=== PATIENT | female | born 1975 | race Hispanic/Latino ===

== ENCOUNTER 2017-05-15 15:45 | Observation (INO) | payer BC, OTHER ==
[~2017-05-15] VITALS: Ht 160 cm; Wt 128.9 kg
[2017-05-16] VITALS (22 sets, daily range): BP systolic 90–140; BP diastolic 60–85
[2017-05-16 08:55] LABS: BASOPHILS % (AUTO) 0.8 % (0.0-5.0); EOSINOPHILS % (AUTO) 4.4 % (0.0-8.0); HEMATOCRIT 36.7 % (36-48); LYMPHOCYTES % (AUTO) 17.3 % (21.0-51.0); MEAN CORPUSCULAR HEMOGLOBIN 28.7 pg (27.0-33.0); MEAN CORPUSCULAR HGB CONC 33.2 g/dL (32.0-36.0); MEAN CORPUSCULAR VOLUME 86.4 fL (79-99); MONOCYTES % (AUTO) 6.3 % (3.0-13.0); NEUTROPHILS % (AUTO) 71.2 % (40.0-77.0); PLATELET COUNT (AUTO) 294 K/uL (130-400); RED BLOOD CELL COUNT(AUTO) 4.25 MIL/uL (4.00-5.50); RED CELL DISTRIBUTION WIDTH 14.5 % (11.0-15.5); WHITE BLOOD COUNT (AUTO) 7.8 K/uL (4.8-10.8)
[2017-05-16 09:02] LABS: CREATININE 0.6 mg/dL (0.5-1.5); POTASSIUM 3.7 mmol/L (3.5-5.1)
[2017-05-16] MEDS: CEFAZOLIN SODIUM 1 GM VIAL IVP SCH ×3 (09:15→18:15)
[2017-05-16] MEDS ORDERED: LACTATED RINGERS 1000ML 1,000 ML IV ONE (09:30)
[2017-05-16] MEDS ORDERED: MIDAZOLAM HCL 1 MG/ML 2ML VIAL ONE (10:49)
[2017-05-16] MEDS ORDERED: LIDOCAINE PF 2% 5ML ABBOJECT ONE (11:01)
[2017-05-16] MEDS ORDERED: GLYCOPYRROLATE 0.2 MG/ML 5 ML VIAL ONE (11:01)
[2017-05-16] MEDS ORDERED: DEXAMETHASONE SOD PHOSPHATE 10MG/ML 1ML VIAL ONE (11:01)
[2017-05-16] MEDS ORDERED: PROPOFOL 10 MG/ML 20ML VIAL IV ONE (11:01)
[2017-05-16] MEDS ORDERED: FENTANYL CITRATE PF 50 MCG/1 ML 2ML VIAL ONE ×3 (11:02→13:44)
[2017-05-16] MEDS ORDERED: CEFAZOLIN SODIUM 1 GM VIAL ONE (11:29)
[2017-05-16] MEDS ORDERED: ONDANSETRON HCL MDV 20ML 2 MG/ML VIAL ONE ×2 (13:07)
[2017-05-16] MEDS ORDERED: NEOSTIGMINE METHYLSULFATE 1MG/ML IV ONE (13:07)
[2017-05-16] MEDS ORDERED: LIDOCAINE HCL-MPF 1% 2ML VIAL IVP PRN (13:15)
[2017-05-16] MEDS ORDERED: DIPHENHYDRAMINE HCL 25 MG CAPSULE PO PRN (13:15)
[2017-05-16] MEDS ORDERED: TEMAZEPAM 15 MG CAPSULE PO PRN (13:15)
[2017-05-16] MEDS ORDERED: FERROUS FUMARATE 324 MG TABLET PO PRN (13:15)
[2017-05-16] MEDS ORDERED: CALCIUM CARBONATE 500 MG TABLET PO PRN (13:15)
[2017-05-16] MEDS ORDERED: PROMETHAZINE HCL 25 MG/ML 1ML AMPULE IM PRN (13:15)
[2017-05-16] MEDS ORDERED: DiphenhydrAMINE HCL 50 MG/ML VIAL IVP PRN (13:15)
[2017-05-16] MEDS ORDERED: KETOROLAC TROMETHAMINE 15MG/ML IV PRN (13:15)
[2017-05-16] MEDS ORDERED: POTASSIUM CHLORIDE 10% ELIXIR 20 MEQ/15 ML UDCUP PO PRN (13:15)
[2017-05-16] MEDS ORDERED: POTASSIUM CHLORIDE 20MEQ/100ML 100 ML IV PRN (13:15)
[2017-05-16] MEDS ORDERED: POTASSIUM CHLORIDE 20 MEQ ERTAB PO PRN (13:15)
[2017-05-16] MEDS ORDERED: HYDROCODONE/ACETAMINOPHEN 5/325 MG TAB PO PRN (13:15)
[2017-05-16] MEDS ORDERED: MEPERIDINE-PF 25 MG/ML SYG ONE (14:30)
[2017-05-16] MEDS: SODIUM CHLORIDE 0.9% 1000ML 1,000 ML IV SCH (15:36)
[2017-05-16] MEDS: KETOROLAC TROMETHAMINE 30MG/ML IV PRN (15:50)
[2017-05-16] MEDS ORDERED: CEFAZOLIN 3GM /D5W 100ML 100 ML IV SCH (18:15)
[2017-05-16] MEDS: HYDROCODONE/ACETAMINOPHEN 5/325 MG TAB PO PRN (18:26)
[2017-05-16] MEDS: FAMOTIDINE 20MG TAB 20 MG TAB PO SCH (20:12)
[2017-05-16] MEDS: ENOXAPARIN SODIUM 40 MG/0.4 ML SYRINGE SQ SCH (21:00)
[2017-05-17] MEDS: CEFAZOLIN SODIUM 1 GM VIAL IVP SCH (01:31)
[2017-05-17] MEDS: SODIUM CHLORIDE 0.9% 1000ML 1,000 ML IV SCH ×2 (01:31→09:07)
[2017-05-17] MEDS: HYDROCODONE/ACETAMINOPHEN 5/325 MG TAB PO PRN ×3 (01:36→14:07)
[2017-05-17 05:13] VITALS: BP 125/65
[2017-05-17 05:41] LABS: HEMATOCRIT 34.3 % (36-48); MEAN CORPUSCULAR HEMOGLOBIN 29.7 pg (27.0-33.0); MEAN CORPUSCULAR HGB CONC 34.6 g/dL (32.0-36.0); MEAN CORPUSCULAR VOLUME 85.8 fL (79-99); NUCLEATED RED BLOOD CELLS 0.1 % (0.0-0.19); PLATELET COUNT (AUTO) 274 K/uL (130-400); RED CELL DISTRIBUTION WIDTH 14.5 % (11.0-15.5); WHITE BLOOD COUNT (AUTO) 9.2 K/uL (4.8-10.8)
[2017-05-17 05:48] LABS: CREATININE 0.6 mg/dL (0.5-1.5); POTASSIUM 3.7 mmol/L (3.5-5.1)
[2017-05-17 08:01] VITALS: BP 114/79
[2017-05-17] MEDS: FAMOTIDINE 20MG TAB 20 MG TAB PO SCH (08:58)
[2017-05-17] MEDS: ENOXAPARIN SODIUM 40 MG/0.4 ML SYRINGE SQ SCH (08:59)
[2017-05-17] MEDS ORDERED: POLYETHYLENE GLYCOL 3350 17 GM POWD.PACK PO SCH (09:00)
[2017-05-17 11:49] VITALS: BP 106/57
[2017-05-17] MEDS ORDERED: PSYLLIUM SEED 1 EACH PACKET PO SCH (12:00)
[2017-05-17] MEDS ORDERED: HYDR-2132 PO (13:05)
[2017-05-17] MEDS ORDERED: ASPI-1012 PO (13:05)
[2017-05-17 16:29] VITALS: BP 137/83
[2017-05-17] MEDS: KETOROLAC TROMETHAMINE 30MG/ML IV PRN (16:29)
[2017-05-18] MEDS ORDERED: BISACODYL 5 MG TABLET.DR PO PRN (13:15)
[2017-05-19] MEDS ORDERED: BISACODYL 10 MG SUPP.RECT RC PRN (13:15)
== END 2017-05-17 17:15 | disposition home or self-care (01) ==
LOC: EDSTATUS 15:45 → DAHIP 05-16 08:04 → 4AH 05-16 15:16
PROVIDERS: ADMIT Orthopaedic Surgery; ATTEND Orthopaedic Surgery
DX: S42.302A Unspecified fracture of shaft of humerus, left arm, initial encounter for closed fracture (principal); X58.XXXA Exposure to other specified factors, initial encounter; Y93.89 Activity, other specified; Y92.89 Other specified places as the place of occurrence of the external cause; Y99.8 Other external cause status
CPT/HCPCS: 24515; 36415 ×2; 76000; 80048 ×2; 84703; 85025; 85027; 96372; 96374; 96375; 96376; A4218 ×3; A4565; A4649; A4930 ×2; A6223; C1713 ×3; C1776; G0378 ×34; J0690 ×4; J1100; J1650; J1885 ×2; J2001; J2175; J2250; J2704; J2710; J3010 ×3; J3490; J7030; J7120

== ENCOUNTER 2017-07-06 09:59 | Observation (INO) | payer OTHER ==
[2017-07-05 16:05] VITALS: BP 140/71
[2017-07-05 16:12] LABS: BASOPHILS % (AUTO) 1.3 % (0.0-5.0); EOSINOPHILS % (AUTO) 3.3 % (0.0-8.0); HEMATOCRIT 39.4 % (36-48); LYMPHOCYTES % (AUTO) 21.9 % (21.0-51.0); MEAN CORPUSCULAR HEMOGLOBIN 27.8 pg (27.0-33.0); MEAN CORPUSCULAR HGB CONC 33.3 g/dL (32.0-36.0); MEAN CORPUSCULAR VOLUME 83.5 fL (79-99); MONOCYTES % (AUTO) 6.7 % (3.0-13.0); NEUTROPHILS % (AUTO) 66.8 % (40.0-77.0); PLATELET COUNT (AUTO) 364 K/uL (130-400); RED BLOOD CELL COUNT(AUTO) 4.71 MIL/uL (4.00-5.50); RED CELL DISTRIBUTION WIDTH 14.6 % (11.0-15.5); WHITE BLOOD COUNT (AUTO) 7.1 K/uL (4.8-10.8)
[2017-07-05 16:25] LABS: CREATININE 0.7 mg/dL (0.5-1.5); POTASSIUM 3.5 mmol/L (3.5-5.1)
[~2017-07-06] VITALS: Ht 160 cm; Wt 128.8 kg
[2017-07-06] VITALS (19 sets, daily range): BP systolic 99–142; BP diastolic 62–96
[2017-07-06] MEDS: CEFAZOLIN SODIUM 1 GM VIAL IVP SCH ×2 (05:00→16:00)
[2017-07-06] MEDS ORDERED: LACTATED RINGERS 1000ML 1,000 ML IV ONE (10:25)
[2017-07-06] MEDS ORDERED: PROPOFOL 10 MG/ML 20ML VIAL IV ONE (15:01)
[2017-07-06] MEDS ORDERED: MIDAZOLAM HCL 1 MG/ML 2ML VIAL ONE (15:01)
[2017-07-06] MEDS ORDERED: FENTANYL CITRATE PF 50 MCG/1 ML 2ML VIAL ONE ×3 (15:01→20:41)
[2017-07-06] MEDS ORDERED: ROPIVACAINE 0.5% 5MG/ML 30ML IJ ONE (15:43)
[2017-07-06] MEDS ORDERED: CEFAZOLIN SODIUM 1 GM VIAL ONE ×2 (16:23→19:42)
[2017-07-06] MEDS ORDERED: ONDANSETRON HCL MDV 20ML 2 MG/ML VIAL ONE (19:27)
[2017-07-06] MEDS ORDERED: GLYCOPYRROLATE 0.2 MG/ML 5 ML VIAL ONE (19:27)
[2017-07-06] MEDS ORDERED: NEOSTIGMINE 5MG/5ML SYR IV ONE (19:27)
[2017-07-06] MEDS ORDERED: DIPHENHYDRAMINE HCL 25 MG CAPSULE PO PRN (19:45)
[2017-07-06] MEDS ORDERED: KETOROLAC TROMETHAMINE 30MG/ML IV PRN (19:45)
[2017-07-06] MEDS ORDERED: CALCIUM CARBONATE 500 MG TABLET PO PRN (19:45)
[2017-07-06] MEDS ORDERED: TEMAZEPAM 15 MG CAPSULE PO PRN (19:45)
[2017-07-06] MEDS ORDERED: DiphenhydrAMINE HCL 50 MG/ML VIAL IVP PRN (19:45)
[2017-07-06] MEDS ORDERED: PROMETHAZINE HCL 25 MG/ML 1ML AMPULE IM PRN (19:45)
[2017-07-06] MEDS ORDERED: HYDROCODONE/ACETAMINOPHEN 5/325 MG TAB PO PRN ×2 (19:45)
[2017-07-06] MEDS ORDERED: MEPERIDINE-PF 25 MG/ML SYG ONE (20:17)
[2017-07-06] MEDS: SODIUM CHLORIDE 0.9% 1000ML 1,000 ML IV SCH (21:27)
[2017-07-06] MEDS: FAMOTIDINE 20MG TAB 20 MG TAB PO SCH (23:03)
[2017-07-07] MEDS: CEFAZOLIN 3GM /D5W 100ML 100 ML IV SCH ×2 (00:47→08:24)
[2017-07-07 00:55] VITALS: BP 111/79
[2017-07-07 04:40] VITALS: BP 96/68
[2017-07-07] MEDS: SODIUM CHLORIDE 0.9% 1000ML 1,000 ML IV SCH (05:32)
[2017-07-07 06:11] LABS: HEMATOCRIT 35.5 % (36-48); MEAN CORPUSCULAR HEMOGLOBIN 27.7 pg (27.0-33.0); MEAN CORPUSCULAR HGB CONC 32.9 g/dL (32.0-36.0); PLATELET COUNT (AUTO) 354 K/uL (130-400); RED BLOOD CELL COUNT(AUTO) 4.22 MIL/uL (4.00-5.50); RED CELL DISTRIBUTION WIDTH 14.8 % (11.0-15.5); WHITE BLOOD COUNT (AUTO) 10.4 K/uL (4.8-10.8)
[2017-07-07 06:20] LABS: CREATININE 0.7 mg/dL (0.5-1.5); POTASSIUM 4.1 mmol/L (3.5-5.1)
[2017-07-07 08:05] VITALS: BP 104/64
[2017-07-07] MEDS: FAMOTIDINE 20MG TAB 20 MG TAB PO SCH (08:24)
[2017-07-07] MEDS ORDERED: ENOXAPARIN SODIUM 40 MG/0.4 ML SYRINGE SQ SCH (09:00)
[2017-07-07] MEDS ORDERED: POLYETHYLENE GLYCOL 3350 17 GM POWD.PACK PO SCH (09:00)
[2017-07-07 11:41] VITALS: BP 114/75
== END 2017-07-07 13:31 | disposition home or self-care (01) ==
LOC: DAH 09:59 → DAHIP 10:00 → DAH 10:00 → 4AH 21:56
PROVIDERS: ADMIT Orthopaedic Surgery; ATTEND Orthopaedic Surgery
DX: S42.35 Comminuted fracture of shaft of humerus (principal); X58.XXXS Exposure to other specified factors, sequela; Z90.49 Acquired absence of other specified parts of digestive tract; Z82.49 Family history of ischemic heart disease and other diseases of the circulatory system; Z83.3 Family history of diabetes mellitus; Z79.899 Other long term (current) drug therapy
CPT/HCPCS: 24515; 36415 ×2; 76000; 80048 ×2; 84703; 85025; 85027; 88300; 96365; 96366; 96372; A4218; A4649 ×3; A4930 ×2; A6223; C1713 ×7; C1776 ×2; G0378 ×28; J0690 ×4; J1650; J2175; J2250; J2704; J2710; J2795; J3010 ×3; J3490; J7030; J7120